=== PATIENT | male | born 1965 | race Caucasian/White ===

== ENCOUNTER 2019-04-14 15:37 | Emergency (ER) | payer OTHER ==
[~2019-04-14] VITALS: Ht 182.9 cm; Wt 115.2 kg
--- NOTE | 2019-04-14 15:57 | NUR ---
CONTACT WITH PT, 53 YR OLD MALE HERE WITH C/O "I THINK I'M HAVING A KIDNEY STONE. STARTED FRIDAY, I HAVE BEEN POUNDING WATER, TUES I HAD MINOR SHARP PAINS, I WOKE UP FEELING GOOD TODAY, THEN AROUND 3PM THE PAIN JUST HIT ME" RIGHT FLANK PAIN 05/08. HAD PRIOR KIDNEY STONE APPROX [address] SINGH AT BEDSIDE TO DEVANTE PT. PTS AT BEDSIDE.
[2019-04-14] MEDS ORDERED: DIPH25CA61 PO (16:03)
[2019-04-14] MEDS ORDERED: ONDANSETRON 2MG/ML, 2ML ONE (16:08)
[2019-04-14] MEDS ORDERED: KETOROLAC 30 MG/1 ML ONE (16:08)
[2019-04-14] MEDS ORDERED: HYDROmorphone 2 MG/ML, 1ML ONE (16:09)
--- NOTE | 2019-04-14 16:22 | NUR ---
PT ABLE TO SIT STILL AND NO MORE DIAPHORESIS AFTER MEDICATION ADMINISTRATION. PT AND PTS AWARE OF POC. PT ABLE TO PROVIDE SMALL AMT OF URINE.
[2019-04-14 16:26] LABS: BASOPHILS # (AUTO) 0.03 x10^3/uL (0-0.1); BASOPHILS % (AUTO) 0 % (0-1); EOSINOPHILS % (AUTO) 1 % (1-7); LYMPHOCYTES # (AUTO) 1.27 x10^3/uL (1-3.4); LYMPHOCYTES % (AUTO) 15 % (22-44); MD NO; MEAN CORPUSCULAR HEMOGLOBIN 30.7 pg (27.5-34.5); MEAN CORPUSCULAR HGB CONC 33.7 g/dL (33.2-36.2); MEAN PLATELET VOLUME 8.9 fL (7.4-10.4); MONOCYTES # (AUTO) 0.92 x10^3/uL (0.2-0.8); MONOCYTES % (AUTO) 11 % (2-9); NEUTROPHILS # (AUTO) 5.98 x10^3/uL (1.8-6.8); NEUTROPHILS % (AUTO) 72 % (42-75); PLATELET COUNT 290 x10^3/uL (130-400); RED BLOOD COUNT 5.37 x10^6/uL (4.38-5.82); RED CELL DISTRIBUTION WIDTH 13.3 % (9.4-14.8)
[2019-04-14] MEDS ORDERED: KETOROLAC 30 MG/1 ML IVPush ONE (16:30)
[2019-04-14] MEDS ORDERED: HYDROmorphone 2 MG/ML, 1ML IVPush PRN (16:30)
[2019-04-14] MEDS ORDERED: ONDANSETRON 2MG/ML, 2ML IVPush ONE (16:30)
[2019-04-14 16:35] LABS: ALANINE AMINOTRANSFERASE 24 U/L (12-78); ALBUMIN 3.9 g/dL (3.4-5.0); ANION GAP 8 mmol/L (5-15); CALCIUM 9.1 mg/dL (8.5-10.1); CHLORIDE 113 mmol/L (98-107); CREATININE 1.34 mg/dL (0.7-1.3)
[2019-04-14 16:36] LABS: MICROSCOPIC INDICATED
[2019-04-14 16:37] LABS: ALKALINE PHOSPHATASE 82 U/L (45-117); BILIRUBIN,TOTAL 0.4 mg/dL (0.2-1.0); TOTAL PROTEIN 7.7 g/dL (6.4-8.2)
--- NOTE | 2019-04-14 16:56 | NUR ---
PT TO CT VIA [facility].
--- NOTE | 2019-04-14 17:10 | NUR ---
PT RETURN TO ROOM. PT STATES "I FEEL A LITTLE BIT OF SOMETHING HAPPENING, BUT OVER ALL I'M GOOD"
[2019-04-14 17:29] LABS: CULTURE INDICATED? NO
--- NOTE | 2019-04-14 17:53 | NUR ---
DR SINGH AT BEDSIDE TO RE-EVAL PT
[2019-04-14 18:32] VITALS: BP 116/90
== END 2019-04-14 18:34 | disposition home or self-care (01) ==
LOC: ED 18:19
DX: N13.2 Hydronephrosis with renal and ureteral calculous obstruction (principal)
CPT/HCPCS: 36415; 74176; 80053; 81001; 85025; 96374; 96375; 99284; J1170; J1885; J2405

== ENCOUNTER 2019-04-19 07:03 | Inpatient (IN) | payer OTHER ==
[~2019-04-19] VITALS: Ht 182.9 cm; Wt 116.8 kg
[~2019-04-19 07:03] MED LIST: DIPH25CA61 PO
--- NOTE | 2019-04-19 07:39 | NUR ---
Presents with continued right flank pain described as colicky at 10/10. Able to completely void, no reported blood tinged urine. Seen here for same recently (patient concerned stone "not moving-I feel the same.") Clean catch urine sample obtained-sent to lab ([id number]) Patient to Xray at [id number]
[2019-04-19] MEDS ORDERED: HYDR-3237 PO (07:45)
[2019-04-19 08:03] LABS: MICROSCOPIC AUTO
[2019-04-19 08:05] LABS: CULTURE INDICATED? NO
[2019-04-19] MEDS ORDERED: SODIUM CHLORIDE FLUSH 10ML SYR IVF PRN (08:30)
[2019-04-19] MEDS ORDERED: MORPHINE SULFATE 4 MG/ML, 1ML IVPush PRN ×2 (08:30→15:30)
[2019-04-19] MEDS ORDERED: ONDANSETRON 2MG/ML, 2ML IVPush PRN (08:30)
--- NOTE | 2019-04-19 08:57 | NUR ---
PIV PLACED TO LEFT FOREARM (LABS OBTAINED AND SENT TO LAB PROACTIVELY)
[2019-04-19 09:55] VITALS: BP 125/85
[2019-04-19] MEDS ORDERED: morphine SULFATE 10 MG/ML, 1ML IVPush PRN (10:30)
[2019-04-19] MEDS: SODIUM CHLORIDE 0.9% 1,000 ML IV SCH ×3 (10:52→23:00)
[2019-04-19 12:45] VITALS: BP 146/92
[2019-04-19] MEDS ORDERED: MIDAZOLAM 1 MG/ML, 2ML ONE (15:01)
[2019-04-19] MEDS ORDERED: FENTANYL PF 250 MCG/5ML ONE (15:02)
[2019-04-19] MEDS ORDERED: ONDANSETRON 2MG/ML, 2ML ONE (15:16)
[2019-04-19] MEDS ORDERED: DEXAMETHASONE 4 MG/ML, 1ML ONE (15:16)
[2019-04-19] MEDS ORDERED: KETOROLAC 30 MG/1 ML ONE (15:16)
[2019-04-19] MEDS ORDERED: PROPOFOL 10 MG/ML, 20ML ONE (15:16)
[2019-04-19] MEDS ORDERED: CEFAZOLIN 1,000 MG ONE (15:16)
[2019-04-19] MEDS ORDERED: EPHEDRINE 50 MG/ML, 1ML IVPush PRN (15:30)
[2019-04-19] MEDS ORDERED: ONDANSETRON 2MG/ML, 2ML IV PRN (15:30)
[2019-04-19] MEDS ORDERED: PROMETHAZINE 25 MG/ML, 1ML IV PRN (15:30)
[2019-04-19] MEDS ORDERED: MIDAZOLAM 1 MG/ML, 2ML IV PRN (15:30)
[2019-04-19] MEDS ORDERED: DIPHENHYDRAMINE 50 MG/ML, 1ML IVPush PRN (15:30)
[2019-04-19] MEDS ORDERED: DIAZEPAM 5 MG/ML, 2ML IVPush PRN (15:30)
[2019-04-19] MEDS ORDERED: EPHEDRINE 50 MG/ML, 1ML IM PRN (15:30)
[2019-04-19] MEDS ORDERED: OXYcodone 5 MG/5 ML ORAL.SOL UDC PO PRN (15:30)
[2019-04-19] MEDS ORDERED: MEPERIDINE/PF 25MG/0.5ML IVPush PRN (15:30)
[2019-04-19] MEDS ORDERED: METOPROLOL 1 MG/ML, 5ML IV PRN (15:30)
[2019-04-19] MEDS ORDERED: FENTANYL PF 100 MCG/2ML IV PRN (15:30)
[2019-04-19] MEDS ORDERED: ONDANSETRON ODT 8 MG PO PRN (15:30)
[2019-04-19 16:40] VITALS: BP 117/85
[2019-04-19 20:24] VITALS: BP 111/63
[2019-04-20 00:14] VITALS: BP 118/66
[2019-04-20 04:41] VITALS: BP 123/73
[2019-04-20 07:42] VITALS: BP 128/93
[2019-04-20 10:11] VITALS: BP 140/88
[2019-04-20] MEDS: SODIUM CHLORIDE 0.9% 1,000 ML IV SCH (10:30)
== END 2019-04-20 10:55 | disposition home or self-care (01) | DRG 670 ==
LOC: ED 08:11 → EDIP 08:25 → UNDOADMIN 08:33 → EDIP 08:33 → 4NOR 09:45 → DCLOUNGE 04-20 10:45
PROVIDERS: ADMIT Family Medicine; ATTEND Family Medicine
PROC: 0TC68ZZ Extirpation of Matter from Right Ureter, Via Natural or Artificial Opening Endoscopic (ICD-10-PCS; principal; 2019-04-19 16:00)
DX: N13.2 Hydronephrosis with renal and ureteral calculous obstruction (principal); E86.0 Dehydration; Z87.442 Personal history of urinary calculi
CPT/HCPCS: 74018; 81001; 82360; 88300; G0378; J0690; J1100; J1885; J2250; J2405; J2704; J3010; C1769; J7030

== ENCOUNTER 2021-06-06 02:37 | Emergency (ER) | payer OTHER ==
[~2021-06-06] VITALS: Ht 182.9 cm; Wt 117.9 kg
[~2021-06-06 02:37] MED LIST changes: +HYDR-3237 PO
[2021-06-06 02:45] VITALS: BP 152/104
[2021-06-06] MEDS ORDERED: SODIUM CHLORIDE FLUSH 10ML SYR IVF ONE (03:00)
[2021-06-06] MEDS ORDERED: ONDANSETRON 2MG/ML, 2ML IVPush ONE (03:00)
[2021-06-06] MEDS ORDERED: KETOROLAC 30 MG/1 ML IVPush ONE (03:00)
[2021-06-06] MEDS ORDERED: KETOROLAC 30 MG/1 ML ONE (03:05)
[2021-06-06] MEDS ORDERED: ONDANSETRON 2MG/ML, 2ML ONE (03:05)
[2021-06-06 03:21] LABS: BASOPHILS % (AUTO) 0 % (0-1); EOSINOPHILS % (AUTO) 2 % (1-7); LYMPHOCYTES % (AUTO) 20 % (22-44); MEAN CORPUSCULAR HEMOGLOBIN 30.2 pg (27.5-34.5); MEAN CORPUSCULAR HGB CONC 33.9 g/dL (33.2-36.2); MEAN PLATELET VOLUME 8.4 fL (7.4-10.4); MONOCYTES % (AUTO) 10 % (2-9); NEUTROPHILS % (AUTO) 68 % (42-75); PLATELET COUNT 303 x10^3/uL (130-400); RED BLOOD COUNT 5.37 x10^6/uL (4.38-5.82); RED CELL DISTRIBUTION WIDTH 13.5 % (9.4-14.8)
[2021-06-06 03:34] LABS: ALANINE AMINOTRANSFERASE 28 U/L (12-78); ALBUMIN 3.7 g/dL (3.4-5.0); ANION GAP 7 mmol/L (5-15); CALCIUM 8.8 mg/dL (8.5-10.1); CHLORIDE 107 mmol/L (98-107); CREATININE 1.25 mg/dL (0.7-1.3)
[2021-06-06 03:36] LABS: ALKALINE PHOSPHATASE 73 U/L (45-117); BILIRUBIN,TOTAL 0.4 mg/dL (0.2-1.0); TOTAL PROTEIN 7.1 g/dL (6.4-8.2)
--- NOTE | 2021-06-06 03:42 | NUR ---
PATIENT TO CT AT THIS TIME.
[2021-06-06 05:27] LABS: MICROSCOPIC INDICATED
--- NOTE | 2021-06-06 05:50 | NUR ---
Patient given discharge instructions and they have confirmed that they understand the instructions. Patient ambulatory with steady gait. NAD, all questions answered appropriately, denies additional needs at this time. No personal belongings left in room after discharge.
== END 2021-06-06 05:52 | disposition home or self-care (01) ==
LOC: ED 05:49
DX: N13.2 Hydronephrosis with renal and ureteral calculous obstruction (principal); R59.9 Enlarged lymph nodes, unspecified; R93.5 Abnormal findings on diagnostic imaging of other abdominal regions, including retroperitoneum
CPT/HCPCS: 36415; 74176; 80053; 81001; 85025; 96374; 96375; 99284; J1885; J2405